=== PATIENT | female | born 1990 | race Caucasian/White ===

== ENCOUNTER 2019-02-09 05:11 | Emergency (ER) | payer OTHER ==
[2019-02-09] MEDS ORDERED: Dexamethasone IV* 4 MG/ML 1 ML (4 MG) IM ONE (05:49)
[2019-02-09] MEDS ORDERED: Albuterol/Ipratropium NEB.SOL* Albuterol 2.5 MG/Ipratropium 0.5 MG 3 ML INH ONE (05:49)
[2019-02-09] MEDS ORDERED: guaiFENesin/CODIEN 100MG-10MG* 5 ML UDC PO ONE (05:49)
[2019-02-09] MEDS ORDERED: Benzonatate CAP* 100 MG PO ONE (06:31)
[2019-02-09 07:05] VITALS: BP 132/79
--- NOTE | 2019-02-09 12:50 | ED ---
Respiratory - HPI Summary HPI Summary: Patient is a 28-year-old female presenting to the ED with worsening allergy symptoms, cough, congestion. She states she has been seen by her PCP at did not help 3 times for this in the past week and a half. She has been prescribed steroids, allergy medications and has been receiving nebulizer treatments. She does not have a nebulizer treatment machine at home. She states her last nebulizer treatment was yesterday which improved her symptoms somewhat. She's never been diagnosed with PNA. She does have known allergies. She is currently on allergy medications for this daily and an inhaled corticosteroid. She began on her prednisone 40 mg daily 5 days yesterday and has felt no improvement as of yet. She states she has had an x-ray but this was read as normal. X-ray was obtained approximately 4 days ago. She denies any fevers, sweats, chills. She states her cough is what is concerning her the most. - History of Current Complaint Chief Complaint: EDUpperRespComplaint Stated Complaint: "ALLERGY/SOB" PER PT Time Seen by Provider: 02/09/19 05:39 Hx Obtained From: Patient Onset/Duration: Sudden Onset Timing: Constant Initial Severity: Mild Current Severity: Mild Pain Intensity: 0 Sputum Amount: None Aggravating Factor(s): Nothing Alleviating Factor(s): Nothing Associated Signs and Symptoms: Negative - Risk Factors Status Asthmaticus Risk Factors: Recent Steroids Pulmonary Embolism Risk Factors: Negative Cardiac Risk Factors: Negative Pseudomonas Risk Factors: Negative Tuberculosis Risk Factors: Negative - Allergy/Home Medications Allergies/Adverse Reactions: Allergies Allergy/AdvReac Type Severity Reaction Status Date / Time seasonal Allergy Coughing Uncoded 02/09/19 05:17 PMH/Surg Hx/FS Hx/Imm Hx Previously Healthy: Yes Respiratory History: Reports: Hx Asthma - Immunization History Hx Pertussis Vaccination: No Immunizations Up to Date: Yes Infectious Disease History: No Infectious Disease History: Denies: Traveled Outside the [place] in Last 30 Days - Social History Occupation: Employed Full-time Lives: With Family Alcohol Use: None Hx Substance Use: No Substance Use Type: Reports: None Hx Tobacco Use: No Smoking Status (MU): Never Smoked Tobacco Review of Systems Constitutional: Negative Negative: Fever, Chills, Fatigue, Skin Diaphoresis Negative: Palpitations, Chest Pain Positive: Shortness Of Breath, Cough Negative: Abdominal Pain, Vomiting, Diarrhea, Nausea Genitourinary: Negative Positive: no symptoms reported, see HPI Negative: Arthralgia, Myalgia Neurological: Negative All Other Systems Reviewed And Are Negative: Yes Physical Exam Triage Information Reviewed: Yes Vital Signs On Initial Exam: Initial Vitals Temp Pulse Resp BP Pulse Ox 98.6 F 65 16 142/92 96 02/09/19 05:12 02/09/19 05:12 02/09/19 05:12 02/09/19 05:12 02/09/19 05:12 Vital Signs Reviewed: Yes Appearance: Positive: Well-Appearing, Well-Nourished Skin: Positive: Warm, Skin Color Reflects Adequate Perfusion Head/Face: Positive: Normal Head/Face Inspection Eyes: Positive: EOMI, ANOOP, Conjunctiva Clear Neck: Positive: Supple, No Lymphadenopathy Respiratory/Lung Sounds: Positive: Other - Cough, no acute respiratory distress , lungs CTA Cardiovascular: Positive: RRR, Pulses are Symmetrical in both Upper and Lower Extremities Musculoskeletal: Positive: Normal, Strength/ROM Intact Neurological: Positive: Speech Normal Psychiatric: Positive: Affect/Mood Appropriate Diagnostics - Vital Signs Vital Signs Temp Pulse Resp BP Pulse Ox 02/09/19 07:03 98.8 F 71 20 132/79 96 02/09/19 05:59 66 20 97 02/09/19 05:12 98.6 F 65 16 142/92 96 - Laboratory Lab Statement: Any lab studies that have been ordered have been reviewed, and results considered in the medical decision making process. Disposition - Course Course Of Treatment: Patient is evaluated for persistent cough over the past week and a half despite taking allergy medications, cough medications and nebulizer treatments. She is currently on prednisone 40 mg and recently started this yesterday. She did not take her dose as of yet today. She endorses improvement with nebulizer treatments, but does not have a nebulizer Sheen at home. Her last nebulizer treatment was in the office yesterday when she was seen by her PCP. X-ray read as negative at her PCP. She is given Robitussin with codeine, 8mg decadron, a nebulizer treatment here as well as Tessalon. This all with minimal improvement, however continues to have a cough. Her lungs are clear to auscultation bilaterally. She appears well otherwise. I have given her a nebulizer machine and have given her albuterol as well as DuoNeb treatments for inhalation. She is also given an albuterol inhaler and prescribed Tessalon. She will remain on her steroids and follow up closely with [facility]. - Diagnoses Provider Diagnoses: Cough, Shortness of breath, H/O seasonal allergies Discharge - Sign-Out/Discharge Documenting (check all that apply): Patient Departure Patient Received Moderate/Deep Sedation with Procedure: No - Discharge Plan Condition: Stable Disposition: HOME Prescriptions: Albuterol 2.5MG/3ML (0.083%)* [Ventolin 2.5 MG/3 ML NEB.NEVAEH*] 2.5 mg INH Q4H # 20 neb.nevaeh Albuterol HFA INHALER* [Ventolin HFA Inhaler*] 1 puff INH Q4H PRN #1 mdi PRN Reason: Shortness Of Breath Albuterol/Ipratropium NEB.NEVAEH* [Duoneb (Albuterol 2.5 MG/Ipratropium 0.5 MG)] 1 neb INH Q6H PRN #10 neb.nevaeh PRN Reason: Shortness Of Breath Benzonatate CAP* [Tessalon CAP*] 100 mg PO TID #21 cap Patient Education Materials: How to Use a Nebulizer (ED) Referrals: No Primary Care Phys,NOPCP [Primary Care Provider] - Additional Instructions: Albuterol treatments every 4 hours nebulizer treatments for shortness of breath For symptoms not well controlled with albuterol treatments, you may you the duo nebs (this is with a steroid) Continue your steroids - not take today - start tomorrow in the morning Tessalon three times daily for cough Continue with cough medications over the counter such as cough drops and robitussin Albuteorl inhaler as needed for when you are unable to use nebulizer treatment Please continue your follow up with PCP at [facility] Disposition and Condition Condition: STABLE Disposition: Home
== END 2019-02-09 07:03 | disposition home or self-care (01) ==
LOC: ED 05:11
DX: R05 Cough (principal); R06.02 Shortness of breath; J45.909 Unspecified asthma, uncomplicated; Z79.51 Long term (current) use of inhaled steroids
CPT/HCPCS: 96372; 99283; A9270-GY; J1100